=== PATIENT | female | born 1960 | race Caucasian/White ===

== ENCOUNTER → 2022-10-30 | Outpatient (CLI) | payer OTHER ==
[2022-10-30 20:05] LABS: C-REACTIVE PROTEIN, EXT RANGE <0.290 mg/dL (0.000-0.300); Free Thyroxine 0.83 ng/dL (0.70-1.60)
== END ==
LOC: LAB SHORT 14:16
PROVIDERS: Family Medicine
DX: R61 Generalized hyperhidrosis (principal)
CPT/HCPCS: 36415; 83001; 84439; 84443; 85651; 86140